=== PATIENT | male | born 1995 | race African-American/Black ===

== ENCOUNTER 2018-11-18 13:34 | Observation (INO) | payer SELFPAY ==
[~2018-11-18] VITALS: Ht 190.5 cm; Wt 93.1 kg
--- OUTSIDE RECORDS SUMMARY | 2018-11-18 13:39 | XMS REPORT ---
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 started yesterday. reports unprotected s exual intercourse with known female. usure if she has an STD. pt did have gonorr hea back in october. kbullardrn PLAN OF CARE Activity Details Follow Up prn Reason: Pending Test GC/CHLAM URINE (STATE) VITAL SIGNS Height 75 in 2018-02-24 Weight 192.8 lbs 2018-02-24 Temperature 97.9 degrees Fahrenheit 2018-02-24 Heart Rate 76 bpm 2018-02-24 Respiratory Rate 20 2018-02-24 BMI 24.10 kg/m2 2018-02-24 Blood pressure systolic 124 mmHg 2018-02-24 Blood pressure diastolic 76 mmHg 2018-02-24 MEDICATIONS No Known Medications RESULTS No Results PROCEDURES Procedure Date Ordered Result Body Site No Charge Feb 24, 2018 INSTRUCTIONS MEDICATIONS ADMINISTERED No Known Medications MEDICAL (GENERAL) HISTORY Type Description Date Surgical History No know Surgical history
--- OUTSIDE RECORDS SUMMARY | 2018-11-18 13:39 | XMS REPORT ---
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 Name Role Phone RAFY ENG Unavailable PROBLEMS Unknown Problems ALLERGIES No Information ENCOUNTERS Encounter Location Date Diagnosis [facility] [id number], [place] [address] Feb, [facility] [id number] [address] Feb, [facility] [id number], [place] [address] 16 Feb, 2018 Discharge from penis R36.9 and High risk sexual behavior, unspecified type Z72.51 IMMUNIZATIONS No Known Immunizations SOCIAL HISTORY Never Assessed REASON FOR VISIT PLAN OF CARE VITAL SIGNS MEDICATIONS Unknown Medications RESULTS No Results PROCEDURES No Known procedures INSTRUCTIONS MEDICATIONS ADMINISTERED No Known Medications MEDICAL (GENERAL) HISTORY Type Description Date Surgical History No know Surgical history
--- OUTSIDE RECORDS SUMMARY | 2018-11-18 13:39 | XMS REPORT ---
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
[2018-11-18] MEDS ORDERED: KETOROLAC 30 MG/ML VIAL IVP STA (13:55)
[2018-11-18] MEDS ORDERED: NS IV 1000 ML 1,000 ML IV ONE ×2 (13:55→14:56)
[2018-11-18 14:00] LABS: BASOPHILS % (AUTO) 0 % (0-10); EOSINOPHILS # (AUTO) 0.1 10^3/uL (0.0-0.3); EOSINOPHILS % (AUTO) 0 % (0-10); HEMATOCRIT 42 % (40-54); HEMOGLOBIN 14.5 G/DL (13.3-17.7); LYMPHOCYTES # (AUTO) 1.8 X 10^3 (1.0-4.0); LYMPHOCYTES % (AUTO) 11 % (12-44); MEAN CORPUSCULAR HEMOGLOBIN 29 PG (25-34); MEAN CORPUSCULAR HGB CONC 35 G/DL (32-36); MEAN CORPUSCULAR VOLUME 83 FL (80-99); MEAN PLATELET VOLUME 12.2 FL (7.4-10.4); MONOCYTES # (AUTO) 1.3 X 10^3 (0.0-1.0); MONOCYTES % (AUTO) 9 % (0-12); NEUTROPHILS # (AUTO) 12.5 X 10^3 (1.8-7.8); NEUTROPHILS % (AUTO) 80 % (42-75); PLATELET COUNT 175 10^3/uL (130-400); RED CELL DISTRIBUTION WIDTH 13.9 % (10.0-14.5); WHITE BLOOD COUNT 15.7 10^3/uL (4.3-11.0)
[2018-11-18 14:28] LABS: BAND NEUTROPHILS 0 %; LYMPHOCYTES % (MANUAL) 13 %; MONOCYTES % (MANUAL) 5 %; NEUTROPHILS % (MANUAL) 82 %
[2018-11-18 14:29] LABS: BASOPHILS % (MANUAL) 0 %; EOSINOPHILS % (MANUAL) 0 %; RBC MORPH NORMAL
[2018-11-18 14:30] LABS: ALANINE AMINOTRANSFERASE 59 U/L (0-55); ALBUMIN 5.3 GM/DL (3.2-4.5); ALKALINE PHOSPHATASE 69 U/L (40-136); BILIRUBIN,TOTAL 0.7 MG/DL (0.1-1.0); BUN/CREATININE RATIO 11; CALCIUM 10.8 MG/DL (8.5-10.1); CARBON DIOXIDE 21 MMOL/L (21-32); CHLORIDE 95 MMOL/L (98-107); CREATINE KINASE 7437 U/L (30-200); CREATININE SERUM 1.89 MG/DL (0.60-1.30); GFR ESTIMATED 54; GLUCOSE 86 MG/DL (70-105); POTASSIUM 4.7 MMOL/L (3.6-5.0); SODIUM 133 MMOL/L (135-145); TOTAL PROTEIN 8.7 GM/DL (6.4-8.2)
[2018-11-18 15:30] LABS: BILIRUBIN,URINE NEGATIVE (NEGATIVE); CLARITY,URINE CLEAR; COLOR,URINE YELLOW; GLUCOSE, URINE (UA) NEGATIVE (NEGATIVE); KETONES,URINE 1+ (NEGATIVE); LEUKOCYTE ESTERASE ,URINE 1+ (NEGATIVE); NITRITE,URINE NEGATIVE (NEGATIVE); PH,URINE 5 (5-9); PROTEIN,URINE 2+ (NEGATIVE); UROBILINOGEN,URINE NORMAL (NORMAL)
[2018-11-18 15:36] LABS: BACTERIA,URINE NEGATIVE /HPF; RBC,URINE 0-2 /HPF; SQUAMOUS EPITHELIAL CELL,UR RARE /HPF
--- NOTE | 2018-11-18 16:18 | ED General ---
General Chief Complaint: General Problems/Pain Stated Complaint: MUSCLE CRAMPS,WEAKNESS,VOMITING Nursing Triage Note: patient reports generalized muscle cramps starting this morning. 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 Pt reports starting practice yesterday. Patient reports N/V and dizziness this AM. Timing/Duration: 1-3 Hours, Getting Worse Modifying Factors: worse with Other (no improvement with water and gatorade during and after practice.) Allergies and Home Medications Allergies Coded Allergies: No Known Drug Allergies (Unverified , 11/18/18) Home Medications No Active Prescriptions or Reported Meds Patient Home Medication List Home Medication List Reviewed: Yes Review of Systems Review of Systems Constitutional: see HPI; No chills; diaphoresis, dizziness; No fever; malaise, other (fatigue) EENTM: no symptoms reported Respiratory: No cough, No dyspnea on exertion, No short of breath Cardiovascular: No chest pain, No edema, No palpitations Gastrointestinal: No abdominal pain, No constipation, No diarrhea, No hematemesis; loss of appetite, nausea, vomiting Genitourinary: No decreased output, No dysuria, No frequency, No hematuria, No pain Musculoskeletal: muscle cramps, muscle twitching Skin: no symptoms reported Psychiatric/Neurological: Denies Headache, Denies Numbness, Denies Paresthesia, Denies Seizure, Denies Tingling, Denies Weakness Hematologic/Lymphatic: Denies Anemia, Denies Easy Bleeding, Denies Easy Bruisi ng, Denies Swollen Glands All Other Systems Reviewed Negative Unless Noted: Yes (Negative excepted noted.) Past Sussukg-Qmoqgq-Klbifx Hx Patient Social History Alcohol Use: Denies Use Recreational Drug Use: No Recent Foreign Travel: No Contact w/Someone Who Travel: No Recent Infectious Disease Expo: No Recent Hopitalizations: No Physical Abuse: No Sexual Abuse: No Mistreated: No Fear: No Past Medical History Respiratory: No Cardiac: No Neurological: No Genitourinary: No Gastrointestinal: No Musculoskeletal: No Endocrine: No HEENT: No Cancer: No Psychosocial: No Integumentary: No Blood Disorders: No Physical Exam Vital Signs Vital Signs - First Documented 11/18/18 13:44 Temp 98.1 Pulse 75 Resp 21 B/P (MAP) 144/81 (102) Pulse Ox 100 Capillary Refill : Less Than 3 Seconds Height, Weight, BMI Height: 6'3.00" Weight: 250lbs. oz. 113.777302sg; BMI Method:Stated Progress/Results/Core Measures Suspected Sepsis Recent Fever Within 48 Hours: No Infection Criteria Present: None New/Unexplained Altered Menta: No Sepsis Screen: No Definite Risk SIRS Temperature:98.1 Pulse: 75 Respiratory Rate: 21 Laboratory Tests 11/18/18 13:53: White Blood Count 15.7H Blood Pressure 144 /81 Mean: 102 Laboratory Tests 11/18/18 13:53: Creatinine 1.89H, Platelet Count 175, Total Bilirubin 0.7 Results/Orders Lab Results Laboratory Tests Test 11/18/18 13:53 11/18/18 14:50 Range/Units White Blood Count 15.7 H 4.3-11.0 10^3/uL Red Blood Count 5.02 4.35-5.85 10^6/uL Hemoglobin 14.5 13.3-17.7 G/DL Hematocrit 42 40-54 % Mean Corpuscular Volume 83 80-99 FL Mean Corpuscular Hemoglobin 29 25-34 PG Mean Corpuscular Hemoglobin Concent 35 32-36 G/DL Red Cell Distribution Width 13.9 10.0-14.5 % Platelet Count 175 130-400 10^3/uL Mean Platelet Volume 12.2 H 7.4-10.4 FL Neutrophils (%) (Auto) 80 H 42-75 % Lymphocytes (%) (Auto) 11 L 12-44 % Monocytes (%) (Auto) 9 0-12 % Eosinophils (%) (Auto) 0 0-10 % Basophils (%) (Auto) 0 0-10 % Neutrophils # (Auto) 12.5 H 1.8-7.8 X 10^3 Lymphocytes # (Auto) 1.8 1.0-4.0 X 10^3 Monocytes # (Auto) 1.3 H 0.0-1.0 X 10^3 Eosinophils # (Auto) 0.1 0.0-0.3 10^3/uL Basophils # (Auto) 0.0 0.0-0.1 10^3/uL Neutrophils % (Manual) 82 % Lymphocytes % (Manual) 13 % Monocytes % (Manual) 5 % Eosinophils % (Manual) 0 % Basophils % (Manual) 0 % Band Neutrophils 0 % Blood Morphology Comment NORMAL Sodium Level 133 L 135-145 MMOL/L Potassium Level 4.7 3.6-5.0 MMOL/L Chloride Level 95 L 98-107 MMOL/L Carbon Dioxide Level 21 21-32 MMOL/L Anion Gap 17 H 5-14 MMOL/L Blood Urea Nitrogen 20 H 7-18 MG/DL Creatinine 1.89 H 0.60-1.30 MG/DL Estimat Glomerular Filtration Rate 54 BUN/Creatinine Ratio 11 Glucose Level 86 70-105 MG/DL Calcium Level 10.8 H 8.5-10.1 MG/DL Corrected Calcium 8.5-10.1 MG/DL Total Bilirubin 0.7 0.1-1.0 MG/DL Aspartate Amino Transf (AST/SGOT) 141 H 5-34 U/L Alanine Aminotransferase (ALT/SGPT) 59 H 0-55 U/L Alkaline Phosphatase 69 40-136 U/L Total Creatine Kinase 7437 H 30-200 U/L Total Protein 8.7 H 6.4-8.2 GM/DL Albumin 5.3 H 3.2-4.5 GM/DL Urine Color YELLOW Urine Clarity CLEAR Urine pH 5 5-9 Urine Specific Rifle 1.020 1.016-1.022 Urine Protein 2+ H NEGATIVE Urine Glucose (UA) NEGATIVE NEGATIVE Urine Ketones 1+ H NEGATIVE Urine Nitrite NEGATIVE NEGATIVE Urine Bilirubin NEGATIVE NEGATIVE Urine Urobilinogen NORMAL NORMAL MG/DL Urine Leukocyte Esterase 1+ H NEGATIVE Urine RBC (Auto) 4+ H NEGATIVE Urine RBC 0-2 /HPF Urine WBC NONE /HPF Urine Squamous Epithelial Cells RARE /HPF Urine Crystals NONE /LPF Urine Bacteria NEGATIVE /HPF Urine Casts NONE /LPF Urine Mucus NEGATIVE /LPF Urine Culture Indicated NO My Orders Orders - CARINA QUICK Ed Iv/Invasive Line Start (11/18/18 13:55) Cbc With Automated Diff (11/18/18 13:55) Comprehensive Metabolic Panel (11/18/18 13:55) Creatine Kinase (11/18/18 13:55) Ua Culture If Indicated (11/18/18 13:55) Ns Iv 1000 Ml (Sodium Chloride 0.9%) (11/18/18 13:55) Ketorolac Injection (Toradol Injection) (11/18/18 13:55) Manual Differential (11/18/18 13:53) Ed Iv/Invasive Line Start (11/18/18 14:56) Ns Iv 1000 Ml (Sodium Chloride 0.9%) (11/18/18 14:56) General/Regular (11/18/18 Lunch) Magnesium (11/18/18 16:10) Sickle Cell Screen (11/18/18 16:11) Medications Given in ED Current Medications Medications Dose Ordered Sig/Ramila Route Start Time Stop Time Status Last Admin Dose Admin Sodium Chloride 1,000 ml @ 0 mls/hr Q0M ONCE IV 11/18/18 13:55 11/18/18 13:57 DC 11/18/18 14:05 0 MLS/HR Sodium Chloride 1,000 ml @ 0 mls/hr Q0M ONCE IV 11/18/18 14:56 11/18/18 14:57 DC 11/18/18 15:07 0 MLS/HR Vital Signs/I&O 11/18/18 13:44 Temp 98.1 Pulse 75 Resp 21 B/P (MAP) 144/81 (102) Pulse Ox 100 Capillary Refill : Less Than 3 Seconds Blood Pressure Mean: 102 Departure Communication (Admissions) Dr. Blandon graciously accepts pt to her medical service for IVF, antiemetics, further management. Impression Primary Impression: Rhabdomyolysis Qualified Codes: M62.82 - Rhabdomyolysis Disposition: ADMITTED INPATIENT Condition: Stable Admissions Decision to Admit Reason: Admit from ER (General) Decision to Admit/Date: Nov 18, 2018 Time/Decision to Admit Time: 16:00 Departure-Patient Inst. Referrals: LORRAINE BLANDON MD (PCP/Family) Primary Care Physician Scripts No Active Prescriptions or Reported Meds CARINA QUICK Nov 18, 2018 16:18
--- NOTE | 2018-11-18 16:45 | NUR ---
MEETA LO admitted to room 430-1, with an admitting diagnosis of RHABDOMYOLISIS , on 11/18/18 from ED via , accompanied by STAFF.MEETA LO introduced to surroundings, call light, bed controls, phone, TV, temperature control, lights, meal times, smoking policy, visitor policy, side rail policy, bathrooms and showers. Patient Rights given to patient in the handbook. MEETA LO verbalizes understanding that [facility] is not responsible for the loss or damage to any personal effects or valuables that are kept in the patients posession during their hospitalization. The following Patient Care Plans were discussed with the PATIENT: Discharge Planning, DEHYDRATION, KNOWLEDGE, and ORAL MUCOUSA. MEETA LO verbalizes understanding of Interdisciplinary Patient Education.
[2018-11-18 17:00] VITALS: BP 145/77
[2018-11-18] MEDS: NS IV 1000 ML 1,000 ML IV SCH ×2 (17:07→21:19)
[2018-11-18] MEDS ORDERED: ONDANSETRON 4 MG/2 ML (SDV) Z0FRAN IV PRN (17:15)
[2018-11-18 17:50] VITALS: BP 145/77
--- NOTE | 2018-11-18 18:56 | History & Physicial ---
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 CPK greater than 7k admitted for iv fluids and further evaluation Source: patient Exam Limitations: no limitations Date Seen 11/18/18 Time Seen by a Provider: 16:00 Attending Physician Lavonne Duff MD PCP Lavonne Duff MD Referring Physician Date of Admission Nov 18, 2018 at 14:25 Home Medications & Allergies Home Medications Reviewed patient Home Medication Reconciliation performed by pharmacy medication reconciliations assessment technician and/or nursing. Patients Allergies have been reviewed. 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 Alcohol Use: Occasionally Uses Recreational Drug Use: No Physical Abuse Screen: No Sexual Abuse: No Recent Foreign Travel: No Contact w/other who traveled: No Recent Hopitalizations: No Recent Infectious Disease Expo: No Immunizations Up To Date Pediatric: No Surgeries Yes (LEFT SHOULDER SURGERY) Respiratory No Cardiovascular No Neurological No Genitourinary No Gastrointestinal No Musculoskeletal No Endocrine History of Endocrine Disorders: No HEENT History of HEENT Disorders: No Cancer No Psychosocial History of Psychiatric Problem: No Integumentary History of Skin or Integumenta: No Blood Transfusions History of Blood Disorders: No Adverse Reaction to a Blood Tr: No Review of Systems Constitutional: see HPI EENTM: no symptoms reported Respiratory: no symptoms reported Cardiovascular: no symptoms reported Gastrointestinal: abdominal pain Genitourinary: no symptoms reported Musculoskeletal: muscle pain, muscle cramps Skin: no symptoms reported Psychiatric/Neurological: No Symptoms Reported Physical Exam Physical Exam Vital Signs Vital Signs - First Documented 11/18/18 11/18/18 13:44 16:52 Temp 98.1 Pulse 75 Resp 21 B/P (MAP) 144/81 (102) Pulse Ox 100 O2 Delivery Room Air Capillary Refill : Less Than 3 Seconds Height, Weight, BMI Height: 6'3.00" Weight: 205lbs. 4.0oz. 93.311694mx; 26.2 BMI Method:Stated General Appearance: No Apparent Distress, WD/WN HEENT: Normal ENT Inspection Neck: Full Range of Motion, Normal Inspection, Non Tender, Supple Respiratory: Chest Non Tender, Lungs Clear, Normal Breath Sounds, No Accessory Muscle Use, No Respiratory Distress Cardiovascular: Regular Rate, Rhythm, No Edema, No Gallop, No JVD, No Murmur, Normal Peripheral Pulses Gastrointestinal: Normal Bowel Sounds, Non Tender Rectal: Deferred Extremity: Normal Capillary Refill, Normal Inspection, Normal Range of Motion, Non Tender, No Calf Tenderness Neurologic/Psychiatric: Alert, Oriented x3, No Motor/Sensory Deficits, Normal 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
[2018-11-18 20:00] VITALS: BP 159/65
[2018-11-19] VITALS (7 sets, daily range): BP systolic 119–151; BP diastolic 61–84
[2018-11-19] MEDS: NS IV 1000 ML 1,000 ML IV SCH ×4 (01:17→13:48)
[2018-11-19 06:01] LABS: BASOPHILS % (AUTO) 0 % (0-10); EOSINOPHILS # (AUTO) 0.3 10^3/uL (0.0-0.3); EOSINOPHILS % (AUTO) 2 % (0-10); HEMATOCRIT 38 % (40-54); HEMOGLOBIN 12.7 G/DL (13.3-17.7); LYMPHOCYTES # (AUTO) 2.4 X 10^3 (1.0-4.0); LYMPHOCYTES % (AUTO) 22 % (12-44); MEAN CORPUSCULAR HEMOGLOBIN 28 PG (25-34); MEAN CORPUSCULAR HGB CONC 34 G/DL (32-36); MEAN CORPUSCULAR VOLUME 84 FL (80-99); MEAN PLATELET VOLUME 13.2 FL (7.4-10.4); MONOCYTES # (AUTO) 1.2 X 10^3 (0.0-1.0); MONOCYTES % (AUTO) 11 % (0-12); NEUTROPHILS # (AUTO) 7.2 X 10^3 (1.8-7.8); NEUTROPHILS % (AUTO) 65 % (42-75); PLATELET COUNT 165 10^3/uL (130-400); RED CELL DISTRIBUTION WIDTH 14.4 % (10.0-14.5); WHITE BLOOD COUNT 11.1 10^3/uL (4.3-11.0)
[2018-11-19 06:24] LABS: ALANINE AMINOTRANSFERASE 55 U/L (0-55); ALBUMIN 3.8 GM/DL (3.2-4.5); ALKALINE PHOSPHATASE 62 U/L (40-136); BILIRUBIN,TOTAL 0.6 MG/DL (0.1-1.0); BUN/CREATININE RATIO 10; CALCIUM 8.6 MG/DL (8.5-10.1); CARBON DIOXIDE 19 MMOL/L (21-32); CHLORIDE 108 MMOL/L (98-107); CREATININE SERUM 1.46 MG/DL (0.60-1.30); GFR ESTIMATED > 60; GLUCOSE 87 MG/DL (70-105); MAGNESIUM 2.1 MG/DL (1.8-2.4); POTASSIUM 4.3 MMOL/L (3.6-5.0); SODIUM 139 MMOL/L (135-145); TOTAL PROTEIN 6.2 GM/DL (6.4-8.2)
[2018-11-19 07:17] LABS: CREATINE KINASE 10668 U/L (30-200)
--- NOTE | 2018-11-19 10:45 | Progress Note - Hospitalist ---
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 CPK greater than 7k admitted for iv fluids and further evaluation Subjective/Events-last exam patient is feeling much better. However the CPK has gone up over 10,000. kidney function is improved. hematuria noted on UA Objective Exam Vital Signs Vital Signs Date Time Temp Pulse Resp B/P (MAP) Pulse Ox O2 Delivery O2 Flow Rate FiO2 11/19/18 08:00 Room Air 11/19/18 04:00 98.6 72 17 132/67 (88) 100 Capillary Refill : Less Than 3 Seconds General Appearance: No Apparent Distress, WD/WN HEENT: Normal ENT Inspection Neck: Normal Inspection, Non Tender, Supple Respiratory: Chest Non Tender, Lungs Clear, Normal Breath Sounds, No Accessory Muscle Use, No Respiratory Distress Cardiovascular: Regular Rate, Rhythm, No Gallop, No JVD, No Murmur, Normal Peripheral Pulses Gastrointestinal: Normal Bowel Sounds, Non Tender, Soft Extremity: Normal Capillary Refill, Normal Inspection, Normal Range of Motion, Non Tender Results/Procedures Lab Laboratory Tests 11/18/18 13:53 11/19/18 05:20 Patient resulted labs reviewed. Assessment/Plan Assessment and Plan Assess & Plan/Chief Complaint rhabdo myolysis acute renal insufficiency secondary to number 1 dehydration anemia sickle cell trait testing pending we will continue aggressive IV fluids, recheck CPK discharge this evening possibly Clinical Quality Measures DVT/VTE Risk/Contraindication: Risk Factor Score Per Nursin RFS Level Per Nursing on Admit: 2=Moderate LORRAINE DUFF MD Nov 19, 2018 10:44
[2018-11-19 12:28] LABS: BILIRUBIN,URINE NEGATIVE (NEGATIVE); CLARITY,URINE CLEAR; COLOR,URINE YELLOW; GLUCOSE, URINE (UA) NEGATIVE (NEGATIVE); KETONES,URINE NEGATIVE (NEGATIVE); LEUKOCYTE ESTERASE ,URINE NEGATIVE (NEGATIVE); NITRITE,URINE NEGATIVE (NEGATIVE); PH,URINE 6 (5-9); PROTEIN,URINE NEGATIVE (NEGATIVE); UROBILINOGEN,URINE NORMAL (NORMAL)
[2018-11-19 12:39] LABS: BACTERIA,URINE NEGATIVE /HPF
[2018-11-19 16:57] LABS: BUN/CREATININE RATIO 7; CARBON DIOXIDE 22 MMOL/L (21-32); CHLORIDE 109 MMOL/L (98-107); POTASSIUM 4.2 MMOL/L (3.6-5.0); SODIUM 142 MMOL/L (135-145)
[2018-11-19 16:58] LABS: ALANINE AMINOTRANSFERASE 65 U/L (0-55); ALKALINE PHOSPHATASE 62 U/L (40-136); BILIRUBIN,TOTAL 0.5 MG/DL (0.1-1.0); CALCIUM 8.7 MG/DL (8.5-10.1); GFR ESTIMATED > 60; GLUCOSE 71 MG/DL (70-105); TOTAL PROTEIN 6.5 GM/DL (6.4-8.2)
[2018-11-19 17:14] LABS: CREATINE KINASE 10256 U/L (30-200)
== END 2018-11-19 17:26 | disposition home or self-care (01) ==
LOC: ER 13:36 → UNDOADMOB 14:25 → 4TH 14:25 → UNDODISOB 11-19 18:00
PROVIDERS: ADMIT Internal Medicine; ATTEND Internal Medicine
DX: M62.82 Rhabdomyolysis (principal); E86.0 Dehydration; E78.1 Pure hyperglyceridemia; D64.9 Anemia, unspecified; N28.9 Disorder of kidney and ureter, unspecified
CPT/HCPCS: 36415; 80053; 81000; 82550; 83735; 85007; 85025; 85027; 85660; 96361; 96374; G0378